=== PATIENT | male | born 1990 | race Caucasian/White ===

== ENCOUNTER 2020-06-05 14:39 | Emergency (ER) | payer BC ==
[~2020-06-05] VITALS: Ht 170.2 cm; Wt 109.3 kg
[2020-06-05 14:57] VITALS: BP 143/79; Ht 170.2 cm; Wt 109.3 kg
== END 2020-06-05 16:20 | disposition home or self-care (01) ==
LOC: ED 14:39
DX: S16.1XXA Strain of muscle, fascia and tendon at neck level, initial encounter (principal); X58.XXXA Exposure to other specified factors, initial encounter; Y93.89 Activity, other specified; Y92.89 Other specified places as the place of occurrence of the external cause; Y99.8 Other external cause status